=== PATIENT | male | born 1965 ===

== ENCOUNTER 2018-08-15 06:04 | Inpatient (IN) | payer MEDICARE ==
[2018-08-15 06:04] VITALS: BMI 33.5
--- NOTE | 2018-08-15 06:49 | ED PDOC ---
Upper Extremity Pain/Injury Time Seen by Provider: 08/15/18 06:09 Chief Complaint (Nursing): Upper Extremity Problem/Injury Chief Complaint (Provider): Upper Extremity Problem/Injury History Per: Patient History/Exam Limitations: no limitations Onset/Duration Of Symptoms: Days (x3) Additional Complaint(s): 52 years old male with history of hypertension and diabetes presents to ER for evaluation of left arm pain and chest pain onset 3 days ago. Patient reports he had rotator cuff surgery with Dr. Serrano in [facility]. Patient was recovering but reports he developed chest pain and left shoulder pain 3 days ago. Patient states pain radiating down to entire arm and reports pain in neck where he had incision. He denies injuries or shortness of breath. PMD: Kelton Ayers Past Medical History Reviewed: Historical Data, Nursing Documentation, Vital Signs Vital Signs: Last Vital Signs Temp 98.0 F 08/15/18 06:20 Pulse 77 08/15/18 06:31 Resp 18 08/15/18 06:31 BP 172/113 H 08/15/18 06:31 Pulse Ox 97 08/15/18 06:31 Primary Care Provider: Kelton Ayers - Medical History PMH: Anxiety, Colonic Polyps, Diabetes, Gastritis, HTN, Hypercholesterolemia, Sleep Apnea (no c pap) Denies: Chronic Kidney Disease - Surgical History Surgical History: Appendectomy (RUPTURED. HOSPITALIZED FOR 1 MONTH), Endoscopy - Family History Family History: States: Unknown Family Hx - Social History Current smoker - smoking cessation education provided: Yes Alcohol: Social Drugs: Denies - Immunization History Hx Tetanus Toxoid Vaccination: No Hx Influenza Vaccination: Yes (up to date) Hx Pneumococcal Vaccination: Yes (up to date) - Home Medications Home Medications: Ambulatory Orders Medication Instructions Recorded Aspirin [Aspirin Chewable] 81 mg PO DAILY 06/25/17 Atorvastatin [Lipitor] 20 mg PO DAILY 06/25/17 Brimonidine Tartrate [Alphagan P 1 drop OU BID 06/25/17 0.1 % Ophth] Gabapentin 600 mg PO TID 06/25/17 Glimepiride [amaRYL] 4 mg PO DAILY 06/25/17 Lisinopril/Hydrochlorothiazide 1 tab PO DAILY 06/25/17 [Zestoretic 20-12.5 mg Tablet] MetFORMIN [glucOPHAGE] 1,000 mg PO BID 06/25/17 Omeprazole 40 mg PO DAILY 06/25/17 predniSONE [predniSONE Tab] 5 mg PO DAILY 06/25/17 traMADol [Ultram] 50 mg PO Q8 #20 tab 06/25/17 - Allergies Allergies/Adverse Reactions: Allergies Allergy/AdvReac Type Severity Reaction Status Date / Time No Known Allergies Allergy Verified 06/25/17 08:10 Review of Systems ROS Statement: Except As Marked, All Systems Reviewed And Found Negative Cardiovascular: Positive for: Chest Pain Respiratory: Negative for: Shortness of Breath Musculoskeletal: Positive for: Neck Pain, Arm Pain (Left) Physical Exam - Reviewed Nursing Documentation Reviewed: Yes Vital Signs Reviewed: Yes - Physical Exam Appears: Positive for: Uncomfortable Head Exam: Positive for: ATRAUMATIC, NORMOCEPHALIC Skin: Positive for: Normal Color, Warm, Dry Eye Exam: Positive for: Normal appearance, EOMI, PERRL ENT: Positive for: Normal ENT Inspection Neck: Positive for: Normal, Painless ROM, Supple Cardiovascular/Chest: Positive for: Regular Rate, Rhythm. Negative for: Murmur Respiratory: Positive for: Normal Breath Sounds. Negative for: Respiratory Distress Pulses-Radial (L): 2+ Pulses-Radial (R): 2+ Gastrointestinal/Abdominal: Positive for: Normal Exam, Soft. Negative for: Tenderness Back: Positive for: Normal Inspection. Negative for: L CVA Tenderness, R CVA Tenderness Extremity: Positive for: Swelling (to left upper extremity), Other (Multiple incision sites in healing stages. Soft tissues are hardened under incision sites, espicially at shoulder. No erythema, fluctuance or drainage.). Negative for: Normal ROM (Limitation in ROM of left shoulder secondary to pain and swelling) Neurological/Psych: Positive for: Awake, Alert, Oriented (x3), Other (Neurovascular intact) - ECG O2 Sat by Pulse Oximetry: 97 (RA) Pulse Ox Interpretation: Normal Medical Decision Making Medical Decision Making: Time: 0639 A/P: Shoulder pain after surgery for rotator cuff injury. Differential includes but not limited to hematoma vs abscess vs postoperative healing. --Labs --Chest CTA --CXR --Toradol [address] Patient singed out to Dr. Ha, pending chest CTA, CXR, labs and reevaluation. Scribe Attestation: Documented by Halie Ferris, acting as a scribe for Nelson Pino MD. Provider Scribe Attestation: All medical record entries made by the Scribe were at my direction and personally dictated by me. I have reviewed the chart and agree that the record accurately reflects my personal performance of the history, physical exam, medical decision making, and the department course for this patient. I have also personally directed, reviewed, and agree with the discharge instructions and disposition. Disposition - Clinical Impression Clinical Impression: Shoulder pain - Patient ED Disposition Is Patient to be Admitted: Transfer of Care - Disposition Disposition: Transfer of Care Disposition Time: 07:00 Condition: FAIR Forms: [employer] (Mongolian) Patient Signed Over To: Billy Ha Handoff Comments: pending workup and re-eval
[2018-08-15 07:05] LABS: BASO # 0.1 K/uL (0.0-0.2); BASO % 1.2 % (0.0-2.0); EOS # 0.2 K/uL (0.0-0.7); EOS % 4.1 % (0.0-4.0); HEMOGLOBIN 12.8 g/dL (12.0-18.0); LYMPH # 0.9 K/uL (1.0-4.3); LYMPH % 15.3 % (20.0-40.0); MEAN CELL VOLUME 85.7 fl (80.0-94.0); MEAN CORPUSCULAR HEMOGLOBIN 29.6 pg (27.0-31.0); MEAN CORPUSCULAR HGB CONC 34.5 g/dL (33.0-37.0); MEAN PLATELET VOLUME 9.2 fl (7.2-11.7); MONO # 0.5 K/uL (0.0-0.8); MONO % 9.2 % (0.0-10.0); NEUT # 4.1 K/uL (1.8-7.0); NEUT % 70.2 % (50.0-75.0); NRBC % 0.1 % (0.0-0.0); RBC 4.32 Mil/uL (4.40-5.90); RED CELL DISTRIBUTION WIDTH 12.9 % (11.5-14.5); WHITE BLOOD COUNT 5.9 K/uL (4.8-10.8)
[2018-08-15 07:09] LABS: BLOOD UREA NITROGEN 25 mg/dl (9-20); CALCIUM 9.2 mg/dL (8.4-10.2); GFR NON-AFRICAN AMERICAN > 60
[2018-08-15] MEDS ORDERED: Iodixanol 320 MG/ML 100 ML BOTTLE IV ONE (07:22)
[2018-08-15] MEDS ORDERED: Sodium Chloride 0.9% 50 ML IV ONE (07:22)
[2018-08-15] MEDS ORDERED: Iodixanol 320 mg/ml 50 ml Sol IV ONE (07:23)
--- NOTE | 2018-08-15 07:23 | ED PDOC ---
- Laboratory Results Result Diagrams: 08/15/18 06:45 08/15/18 06:45 Interpretation Of Abn Labs: 25 bun - ECG ECG: Positive for: Interpreted By Me, Viewed By Me ECG Rhythm: Positive for: Normal QRS, Normal ST Segment, Sinus Rhythm O2 Sat by Pulse Oximetry: 97 (RA) Pulse Ox Interpretation: Normal - Radiology X-Ray: Interpreted by Me, Viewed By Me X-Ray Interpretation: No Acute Disease - Other Rad cta X-Ray: Read By Radiologist X-Ray Interpretation: no acute us X-Ray: Read By Radiologist X-Ray Interpretation: no acute - Progress ED Course And Treament: 1020: Pain still present. Will give asa and need admit for further evaluation. Spoke with Dr. Ayers who will admit. Spoke with Dr. Serrano who states she already gave pt. percocet. Will admit for pain control and further evaluaton for possible cardiac etiology as pt. had chest pain. Has risk ractors. 1125: Pain gone with morphine and asa given. Medical Decision Making Medical Decision Makin: Patient endorsed to this provider by Dr. Pino. Patient is here for left shoulder pain and surgery with Dr. Serrano. Pending CT chest, shoulder x-ray, arm ultrasound, and evaluation for DVT. Disposition Counseled Patient/Family Regarding: Studies Performed, Diagnosis - Clinical Impression Clinical Impression: Shoulder pain, Chest pain - POA Present On Arrival: None - Disposition Disposition: Hospitalized as Observation Patient Disposition Time: 07:20 Condition: FAIR Forms: [employer] (Ivorian)
[2018-08-15 07:24] LABS: INR 1.1; PROTHROMBIN TIME 12.6 Seconds (9.8-13.1)
[2018-08-15 07:27] LABS: PARTIAL THROMBOPLASTIN TIME 36.4 Seconds (25.6-37.1)
--- NOTE | 2018-08-15 08:34 | CT ---
Date of service: 08/15/2018 PROCEDURE: CT Chest with contrast (Pulmonary Angiogram) HISTORY: recent surgery, L sided CP, arm pain COMPARISON: None available. TECHNIQUE: Axial computed tomography images were obtained of the chest in the pulmonary arterial phase of enhancement. Coronal and sagittal reformatted images were created and reviewed. Intravenous contrast dose: Visipaque 320, 113 cc Radiation dose: Total exam DLP = 397.87 mGy-cm. This CT exam was performed using one or more of the following dose reduction techniques: Automated exposure control, adjustment of the mA and/or kV according to patient size, and/or use of iterative reconstruction technique. FINDINGS: PULMONARY ARTERIES: Unremarkable. No pulmonary embolism. AORTA: No acute findings. No thoracic aortic aneurysm. No aortic atherosclerotic calcification or mural plaque present. LUNGS: Unremarkable. No nodule, mass or pulmonary consolidation. PLEURAL SPACES: Unremarkable. No effusion or pneumothorax. HEART: Unremarkable. No cardiomegaly. No significant pericardial effusion. LYMPH NODES: No lymphadenopathy. BONES, CHEST WALL: Unremarkable. No fracture or destructive lesion OTHER FINDINGS: Trace reactive changes are identified at the left neck base/left supraclavicular fossa medially with trace gas identified at the lateral margins of the left pectoralis minor muscle and additional reactive changes at the left pectoralis muscle inferolaterally including trace emphysema. This likely corresponds to the patient's complaint of left-sided chest and arm pain, particularly if the pain is at the upper left arm. Further clinical correlation advised. IMPRESSION: Unremarkable CT pulmonary angiogram. No pulmonary embolus. No acute cardiopulmonary disease appreciable. Limited reactive change are identified at the left neck base, supraclavicular fossa, pectoralis major and minor muscles-potentially postoperative. Clinically correlate further. This appears to mass the patient's pain signature. Clinically correlate further.
[2018-08-15] MEDS ORDERED: Morphine 4 MG/ML VIAL ONE ×2 (09:21→11:00)
[2018-08-15] MEDS ORDERED: Sodium Chloride 0.9% 1,000 ML IV STA (09:30)
--- NOTE | 2018-08-15 09:59 | US ---
Date of service: 08/15/2018 PROCEDURE: LEFT UPPER EXTREMITY VENOUS ULTRASOUND HISTORY: r/o DVT COMPARISON: None available. TECHNIQUE: Ultrasound of the left upper extremity major deep veins is been performed including graded compression, augmentation including various duplex Doppler techniques. FINDINGS: Good augmentation, graded compression and normal phasicity of venous blood flow is appreciated at the left internal jugular, subclavian, brachial and axillary veins with the basilic, cephalic, ulnar and radial veins patent. No sonographic evidence to suggest deep venous thrombosis. IMPRESSION: No sonographic evidence to suggest deep venous thrombosis left upper extremity.
--- NOTE | 2018-08-15 14:31 | CARD ---
APPROVED REPORT Date of service: 08/15/2018 EKG Measurement Heart [id number] <Conclusion> Normal sinus rhythm Normal ECG
[2018-08-15] MEDS ORDERED: Naproxen 500 MG TAB PO PRN (14:43)
--- NOTE | 2018-08-15 14:59 | RAD ---
Date of service: 08/15/2018 PROCEDURE: CHEST RADIOGRAPH, 1 VIEW HISTORY: chest/shoulder pain COMPARISON: None available. FINDINGS: LUNGS: Clear. PLEURA: No pneumothorax or pleural fluid seen. CARDIOVASCULAR: No aortic atherosclerotic calcification present. No radiographic findings to suggest acute or significant cardiovascular disease. OSSEOUS STRUCTURES: No significant abnormalities. VISUALIZED UPPER ABDOMEN: Normal. OTHER FINDINGS: None. IMPRESSION: No active disease. Concordant results with the preliminary interpretation rendered by the emergency department physician procedure.
--- NOTE | 2018-08-15 15:00 | RAD ---
Date of service: 08/15/2018 PROCEDURE: Radiographs of the Left Shoulder HISTORY: Left shoulder Pain. No history of recent/ related trauma provided. COMPARISON: No prior. TECHNIQUE: 3 views obtained. FINDINGS: BONES: Normal. No fracture. JOINTS: Normal. Glenohumeral and acromioclavicular joints preserved. No osteoarthritis. SOFT TISSUES: Normal. OTHER FINDINGS: None. IMPRESSION: Normal radiographs of the left shoulder.
--- NOTE | 2018-08-15 15:14 | CP.PCM.HP ---
History of Present Illness - History of Present Illness History of Present Illness: 52 years old male with history of hypertension and diabetes presents to ER for evaluation of left arm pain and chest pain onset 3 days ago he c/o same weakness of the lt hand. Patient had a surgery about a week ago for thoracic outlet syndrome, cubital tunnel syndrome, carpal tunnel syndrome on left with Dr. Serrano in [facility]. Patient was recovering but reports he developed chest pain and left shoulder pain 3 days ago. Patient states pain radiating down to entire arm and reports pain in neck where he had incision. He denies injuries. Present on Admission - Present on Admission Any Indicators Present on Admission: No Review of Systems - Constitutional Constitutional: As Per HPI - EENT Eyes: As Per HPI - Cardiovascular Cardiovascular: As Per HPI - Respiratory Respiratory: As Per HPI - Gastrointestinal Gastrointestinal: As Per HPI - Genitourinary Genitourinary: As Per HPI - Musculoskeletal Musculoskeletal: As Per HPI - Neurological Neurological: As Per HPI - Psychiatric Psychiatric: As Per HPI Past Patient History - Tetanus Immunizations Tetanus Immunization: Unknown - Past Medical History & Family History Past Medical History?: Yes - Past Social History Alcohol: Social Drugs: Denies - CARDIAC Hx Hypercholesterolemia: Yes Hx Hypertension: Yes - PULMONARY Hx Sleep Apnea: Yes (no c pap) - NEUROLOGICAL Hx Neurological Disorder: Yes (NEUROPATHY BOTH LOWER EXTREMITIES) - HEENT Hx HEENT Problems: Yes Hx Glaucoma: Yes - RENAL Hx Chronic Kidney Disease: No - ENDOCRINE/METABOLIC Hx Endocrine Disorders: Yes Hx Diabetes Mellitus Type 2: Yes - HEMATOLOGICAL/ONCOLOGICAL Hx Blood Disorders: Yes Hx Shingles: Yes - INTEGUMENTARY Hx Dermatological Problems: No - MUSCULOSKELETAL/RHEUMATOLOGICAL Hx Musculoskeletal Disorders: Yes Hx Degenerative Joint Disease: Yes Hx Osteoarthritis: Yes Other/Comment: LEFT SHOULDER REPAIR /TORN ROTATOR CUFF. Thoracic Outlet Syndrome, left. Carpal Tunnel, left - GASTROINTESTINAL Hx Gastritis: Yes - GENITOURINARY/GYNECOLOGICAL Hx Genitourinary Disorders: No - PSYCHIATRIC Hx Anxiety: Yes - SURGICAL HISTORY Hx Appendectomy: Yes (RUPTURED. HOSPITALIZED FOR 1 MONTH) - ANESTHESIA Hx Anesthesia: Yes Hx Anesthesia Reactions: No Hx Malignant Hyperthermia: No Meds Allergies/Adverse Reactions: Allergies Allergy/AdvReac Type Severity Reaction Status Date / Time No Known Allergies Allergy Verified 06/25/17 08:10 Physical Exam - Constitutional Appears: In Acute Distress - Head Exam Head Exam: ATRAUMATIC, NORMAL INSPECTION, NORMOCEPHALIC - Eye Exam Eye Exam: Normal appearance - ENT Exam ENT Exam: Mucous Membranes Moist - Respiratory Exam Respiratory Exam: Clear to Auscultation Bilateral - Cardiovascular Exam Cardiovascular Exam: REGULAR RHYTHM, +S1, +S2 - GI/Abdominal Exam GI & Abdominal Exam: Normal Bowel Sounds - Extremities Exam Extremities exam: Positive for: normal inspection - Neurological Exam Neurological exam: Alert, CN II-XII Intact, Oriented x3 Additional comments: 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 in relation to the severe pain - Skin Skin Exam: Normal Color Results - Vital Signs Recent Vital Signs: Last Vital Signs Temp 98.0 F 08/15/18 06:20 Pulse 74 08/15/18 14:03 Resp 10 L 08/15/18 14:03 BP 157/103 H 08/15/18 14:03 Pulse Ox 97 08/15/18 14:03 - Labs Result Diagrams: 08/15/18 06:45 08/15/18 06:45 Labs: Laboratory Results - last 24 hr 08/15/18 08/15/18 08/15/18 06:45 06:45 06:45 WBC 5.9 RBC 4.32 L Hgb 12.8 Hct 37.0 MCV 85.7 MCH 29.6 MCHC 34.5 RDW 12.9 Plt Count 221 MPV 9.2 Neut % (Auto) 70.2 Lymph % (Auto) 15.3 L [place] % (Auto) 9.2 Eos % (Auto) 4.1 H Baso % (Auto) 1.2 Neut # (Auto) 4.1 Lymph # (Auto) 0.9 L [place] # (Auto) 0.5 Eos # (Auto) 0.2 Baso # (Auto) 0.1 PT 12.6 INR 1.1 APTT 36.4 Sodium 135 Potassium 4.3 Chloride 103 Carbon Dioxide 24 Anion Gap 12 BUN 25 H Creatinine 0.9 Est GFR ( Amer) > 60 Est GFR (Non-Af Amer) > 60 Random Glucose 135 H Calcium 9.2 Troponin I 0.0160 Assessment & Plan (1) Chest pain Status: Acute (2) Shoulder pain Status: Acute (3) Diabetes Status: Acute (4) HTN (hypertension) Status: Chronic - Assessment and Plan (Free Text) Plan: will follow the consultations
--- NOTE | 2018-08-15 15:45 | CP.PCM.CON ---
History of Present Illness - History of Present Illness History of Present Illness: 52 yo man s/p brachial plexus exploration/repair last week at [facility] is admitted for pain and referred for pain management. Patient was seen at the surgeon's office on Saturday for the same pain and was discharged with tad krishnamurthy, which didn't work as an outpatient. Patient developed the pain after left shoulder surgery more than 2 years ago. The current pain is the same as before. He does have new onset chest pain, which wasn't present before the surgery. Patient does have severe diabetic neuropathy as well, mostly in the lower legs. He also admits to cervical disc diseases. He is on Neurontin 600mg, and had be en on LYrica and Cymbalta before but couldn't tolerate them. Tramdol is not helping with his pain. Past Patient History - Tetanus Immunizations Tetanus Immunization: Unknown - Past Medical History & Family History Past Medical History?: Yes - Past Social History Alcohol: Social Drugs: Denies - CARDIAC Hx Hypercholesterolemia: Yes Hx Hypertension: Yes - PULMONARY Hx Sleep Apnea: Yes (no c pap) - NEUROLOGICAL Hx Neurological Disorder: Yes (NEUROPATHY BOTH LOWER EXTREMITIES) - HEENT Hx HEENT Problems: Yes Hx Glaucoma: Yes - RENAL Hx Chronic Kidney Disease: No - ENDOCRINE/METABOLIC Hx Endocrine Disorders: Yes Hx Diabetes Mellitus Type 2: Yes - HEMATOLOGICAL/ONCOLOGICAL Hx Blood Disorders: Yes Hx Shingles: Yes - INTEGUMENTARY Hx Dermatological Problems: No - MUSCULOSKELETAL/RHEUMATOLOGICAL Hx Musculoskeletal Disorders: Yes Hx Degenerative Joint Disease: Yes Hx Osteoarthritis: Yes Other/Comment: LEFT SHOULDER REPAIR /TORN ROTATOR CUFF. Thoracic Outlet Syndrome, left. Carpal Tunnel, left - GASTROINTESTINAL Hx Gastritis: Yes - GENITOURINARY/GYNECOLOGICAL Hx Genitourinary Disorders: No - PSYCHIATRIC Hx Anxiety: Yes - SURGICAL HISTORY Hx Appendectomy: Yes (RUPTURED. HOSPITALIZED FOR 1 MONTH) - ANESTHESIA Hx Anesthesia: Yes Hx Anesthesia Reactions: No Hx Malignant Hyperthermia: No Meds Allergies/Adverse Reactions: Allergies Allergy/AdvReac Type Severity Reaction Status Date / Time No Known Allergies Allergy Verified 06/25/17 08:10 - Medications Medications: Current Medications Aspirin (Ecotrin) 81 mg PO DAILY [facility] Atorvastatin Calcium (Lipitor) 20 mg PO DAILY [facility] Enoxaparin Sodium (Lovenox) 40 mg SC DAILY [facility]; Protocol Ergocalciferol (Drisdol 50,000 Intl Units Cap) 1 cap PO MO [facility] Gabapentin (Neurontin) 600 mg PO Q8 [facility] Glipizide (Glucotrol Xl) 10 mg PO DAILY [facility] Home Med (Brimonidine Tartrate [Alphagan P 0.1 % Ophth]) 1 drop OU BID [facility] Insulin Detemir (Levemir) 64 units SC HS [facility] Insulin Human Regular (Humulin R) 0 units SC ACHS [facility]; Protocol Losartan Potassium (Cozaar) 25 mg PO DAILY [facility] Metformin HCl (Glucophage) 1,000 mg PO BID [facility] Naproxen (Naproxen) 500 mg PO Q12 PRN PRN Reason: Pain, moderate (4-7) Pantoprazole Sodium (Protonix Ec Tab) 40 mg PO DAILY [facility] Tramadol HCl (Ultram) 50 mg PO Q12 PRN PRN Reason: Pain, severe (8-10) Last Admin: 08/15/18 14:59 Dose: 50 mg Physical Exam - Neck Exam Additional comments: surgical scar in left neck. TTP diffusely. - Extremities Exam Additional comments: Allodynia over left arm diffusely. Temperature and color changes in the fingers on left hand. Results - Vital Signs Recent Vital Signs: Last Vital Signs Temp 98.0 F 08/15/18 06:20 Pulse 74 08/15/18 14:03 Resp 10 L 08/15/18 14:03 BP 157/103 H 08/15/18 14:03 Pulse Ox 97 08/15/18 14:03 - Labs Result Diagrams: 08/15/18 06:45 08/15/18 06:45 Labs: Laboratory Results - last 24 hr 08/15/18 08/15/18 08/15/18 06:45 06:45 06:45 WBC 5.9 RBC 4.32 L Hgb 12.8 Hct 37.0 MCV 85.7 MCH 29.6 MCHC 34.5 RDW 12.9 Plt Count 221 MPV 9.2 Neut % (Auto) 70.2 Lymph % (Auto) 15.3 L [place] % (Auto) 9.2 Eos % (Auto) 4.1 H Baso % (Auto) 1.2 Neut # (Auto) 4.1 Lymph # (Auto) 0.9 L [place] # (Auto) 0.5 Eos # (Auto) 0.2 Baso # (Auto) 0.1 PT 12.6 INR 1.1 APTT 36.4 Sodium 135 Potassium 4.3 Chloride 103 Carbon Dioxide 24 Anion Gap 12 BUN 25 H Creatinine 0.9 Est GFR ( Amer) > 60 Est GFR (Non-Af Amer) > 60 Random Glucose 135 H Calcium 9.2 Troponin I 0.0160 Assessment & Plan - Assessment and Plan (Free Text) Assessment: 52 yo man w/ likely brachial plexus pathology s/p recent surgery. Current pain could be normal post-op pain vs. nerve irritation vs. progressing CRPS. He also has chest pain that needs to be treated independently. Tramadol won't be enough to address the post-op pain or neuropathic pain. - consult plastic surgery to follow up - r/o ACS per protocol, cardio consult as necessary - start Dilaudid 1mg IV q3h PRN, consider Methadone - increase Neurontin to 800mg q8h - trial of Doxepin 25mg qhs - retrieve cervical MRI if available
[2018-08-15] MEDS ORDERED: Insulin Regular 100 units/ml ONE (17:25)
[2018-08-15] MEDS: Insulin Regular 100 units/ml SC SCH ×2 (17:44→22:44)
--- NOTE | 2018-08-15 18:50 | MRI ---
Date of service: 08/15/2018 PROCEDURE: MRI BRAIN WITHOUT CONTRAST HISTORY: left arm weakness; s/p surgery COMPARISON: None available. TECHNIQUE: Multiplanar, multisequence MR images of the brain were obtained without intravenous contrast enhancement. FINDINGS: HEMORRHAGE: None DWI: No evidence of an acute or early subacute infarction. BRAIN PARENCHYMA: No mass effect or edema. No atrophy or chronic microvascular ischemic changes. VENTRICLES: Unremarkable. No hydrocephalus. CRANIUM: Unremarkable. ORBITS: Grossly unremarkable. PARANASAL SINUSES/MASTOIDS: Clear VASCULAR SYSTEM: Skull base flow voids intact. OTHER FINDINGS: None. IMPRESSION: No evidence of acute infarction or acute intracranial hemorrhage mass effect or midline shift.
[2018-08-15] MEDS: HYDROmorphone 0.5 mg/0.5 ml ISec IVP PRN (19:06)
--- NOTE | 2018-08-15 22:34 | CP.PCM.CON ---
History of Present Illness - History of Present Illness History of Present Illness: Plastic surgery consult note for Dr. Serrano-Svetlana Malcolm, PGY-2 Pt seen/examined at bedside 52M w/PSH sig for recent thoracic outlet release, cubital tunnel release, carpal tunnel release and pec minor release of the Left upper extremity consulted for post operative pain. Pt reports that he has seen Dr. Serrano in the office for follow up, however does not feel that the 3 Tramadol pills and few Naprosyn pills that he took sufficiently controlled his pain. Pt reports left sided chest pain x 3 days, which prompted him to report to the ED for evaluation. Pt states that the left upper extremity pain is more severe than before surgery. Reports some SOB with pain. No changes in bowel or bladder habits, ambulating, voiding, no changes in appetite. Pt reports that he has not been attending Physical therapy as instructed due to co pay. PMH: HTN, carpal tunnel syndrome, uncontrolled DM, ventral hernia, obesity, severe peripheral neuropathy PSH: Left rotator cuff sx, appendectomy, Right inguinal hernia repair All: NKDA SH: Admits to drinking beer, a 6 pack weekly; smokes tobacco when he drinks beer, denies illicit drug use FH: Non contributory PMD: Dr. Ayers Review of Systems - Review of Systems All systems: reviewed and no additional remarkable complaints except - Constitutional Constitutional: absent: Chills, Fever - Cardiovascular Cardiovascular: Chest Pain - Gastrointestinal Gastrointestinal: absent: Abdominal Pain, Constipation, Diarrhea, Nausea, Vomiting - Genitourinary Genitourinary: absent: Difficulty Urinating - Integumentary Integumentary: absent: New Lesions, Non-Healing Lesions - Neurological Neurological: absent: Weakness - Psychiatric Psychiatric: absent: Change in Appetite Past Patient History - Tetanus Immunizations Tetanus Immunization: Unknown - Past Medical History & Family History Past Medical History?: Yes - Past Social History Smoking Status: Never Smoked - CARDIAC Hx Cardiac Disorders: Yes Hx Hypercholesterolemia: Yes Hx Hypertension: Yes - PULMONARY Hx Respiratory Disorders: Yes Hx Sleep Apnea: Yes (no c pap) - NEUROLOGICAL Hx Neurological Disorder: Yes (NEUROPATHY BOTH LOWER EXTREMITIES) - HEENT Hx HEENT Problems: Yes - RENAL Hx Chronic Kidney Disease: No - ENDOCRINE/METABOLIC Hx Endocrine Disorders: Yes - HEMATOLOGICAL/ONCOLOGICAL Hx Blood Disorders: Yes - INTEGUMENTARY Hx Dermatological Problems: No - MUSCULOSKELETAL/RHEUMATOLOGICAL Hx Musculoskeletal Disorders: Yes - GASTROINTESTINAL Hx Gastrointestinal Disorders: Yes Hx Gastritis: Yes Other/Comment: colonic polyps - GENITOURINARY/GYNECOLOGICAL Hx Genitourinary Disorders: No - PSYCHIATRIC Hx Psychophysiologic Disorder: Yes Hx Anxiety: Yes - SURGICAL HISTORY Hx Surgeries: Yes Hx Appendectomy: Yes (RUPTURED. HOSPITALIZED FOR 1 MONTH) - ANESTHESIA Hx Anesthesia: Yes Hx Anesthesia Reactions: No Hx Malignant Hyperthermia: No Meds Allergies/Adverse Reactions: Allergies Allergy/AdvReac Type Severity Reaction Status Date / Time No Known Allergies Allergy Verified 06/25/17 08:10 - Medications Medications: Current Medications Aspirin (Ecotrin) 81 mg PO DAILY [facility] Atorvastatin Calcium (Lipitor) 20 mg PO HS [facility] Doxepin HCl (Sinequan) 25 mg PO HS [facility] Enoxaparin Sodium (Lovenox) 40 mg SC DAILY [facility]; Protocol Ergocalciferol (Drisdol 50,000 Intl Units Cap) 1 cap PO MO [facility] Gabapentin (Neurontin) 800 mg PO TID [facility] Last Admin: 08/15/18 17:31 Dose: 800 mg Glipizide (Glucotrol Xl) 10 mg PO DAILY [facility] Home Med (Brimonidine Tartrate [Alphagan P 0.1 % Ophth]) 1 drop OU BID [facility] Hydromorphone HCl (Dilaudid) 1 mg IVP Q3 PRN PRN Reason: Pain, severe (8-10) Last Admin: 08/15/18 19:06 Dose: 1 mg Insulin Detemir (Levemir) 64 units SC HS [facility] Insulin Human Regular (Humulin R) 0 units SC ACHS [facility]; Protocol Last Admin: 08/15/18 17:44 Dose: Not Given Losartan Potassium (Cozaar) 25 mg PO DAILY [facility] Last Admin: 08/15/18 17:29 Dose: 25 mg Metformin HCl (Glucophage) 1,000 mg PO BID [facility] Last Admin: 08/15/18 17:30 Dose: 1,000 mg Pantoprazole Sodium (Protonix Ec Tab) 40 mg PO DAILY [facility] Physical Exam - Constitutional Appears: Non-toxic, No Acute Distress - Head Exam Head Exam: ATRAUMATIC, NORMAL INSPECTION, NORMOCEPHALIC - Eye Exam Eye Exam: EOMI, Normal appearance - ENT Exam ENT Exam: Mucous Membranes Moist, Normal Exam - Neck Exam Additional comments: surgical site at base of left neck with surgical glue in place, induration, no f luctuance noted, tender to palpation, some ecchymoses, no erythema. - Respiratory Exam Respiratory Exam: Chest Wall Tenderness (left chest wall with linear incision, well approximated, no erythema/fluctuance/drainage, indurated and tender to palpation), NORMAL BREATHING PATTERN - Cardiovascular Exam Cardiovascular Exam: REGULAR RHYTHM - GI/Abdominal Exam GI & Abdominal Exam: Soft. absent: Distended (morbidly obese), Tenderness - Extremities Exam Extremities exam: Positive for: normal inspection - Neurological Exam Neurological exam: Alert, CN II-XII Intact, Oriented x3 - Psychiatric Exam Psychiatric exam: Normal Affect, Normal Mood - Skin Skin Exam: Dry, Normal Color, Warm Results - Vital Signs Recent Vital Signs: Last Vital Signs Temp 98.0 F 08/15/18 06:20 Pulse 72 08/15/18 21:19 Resp 17 08/15/18 21:19 BP 159/96 H 08/15/18 21:19 Pulse Ox 95 08/15/18 21:02 - Labs Result Diagrams: 08/15/18 06:45 08/15/18 06:45 Labs: Laboratory Results - last 24 hr 08/15/18 08/15/18 08/15/18 06:45 06:45 06:45 WBC 5.9 RBC 4.32 L Hgb 12.8 Hct 37.0 MCV 85.7 MCH 29.6 MCHC 34.5 RDW 12.9 Plt Count 221 MPV 9.2 Neut % (Auto) 70.2 Lymph % (Auto) 15.3 L [place] % (Auto) 9.2 Eos % (Auto) 4.1 H Baso % (Auto) 1.2 Neut # (Auto) 4.1 Lymph # (Auto) 0.9 L [place] # (Auto) 0.5 Eos # (Auto) 0.2 Baso # (Auto) 0.1 PT 12.6 INR 1.1 APTT 36.4 Sodium 135 Potassium 4.3 Chloride 103 Carbon Dioxide 24 Anion Gap 12 BUN 25 H Creatinine 0.9 Est GFR ( Amer) > 60 Est GFR (Non-Af Amer) > 60 POC Glucose (mg/dL) Random Glucose 135 H Hemoglobin A1c Calcium 9.2 Troponin I 0.0160 08/15/18 08/15/18 08/15/18 15:53 17:12 17:28 WBC RBC Hgb Hct MCV MCH MCHC RDW Plt Count MPV Neut % (Auto) Lymph % (Auto) [place] % (Auto) Eos % (Auto) Baso % (Auto) Neut # (Auto) Lymph # (Auto) [place] # (Auto) Eos # (Auto) Baso # (Auto) PT INR APTT Sodium Potassium Chloride Carbon Dioxide Anion Gap BUN Creatinine Est GFR ( Amer) Est GFR (Non-Af Amer) POC Glucose (mg/dL) 150 H 124 H Random Glucose Hemoglobin A1c 9.1 H D Calcium Troponin I 08/15/18 21:45 WBC RBC Hgb Hct MCV MCH MCHC RDW Plt Count MPV Neut % (Auto) Lymph % (Auto) [place] % (Auto) Eos % (Auto) Baso % (Auto) Neut # (Auto) Lymph # (Auto) [place] # (Auto) Eos # (Auto) Baso # (Auto) PT INR APTT Sodium Potassium Chloride Carbon Dioxide Anion Gap BUN Creatinine Est GFR ( Amer) Est GFR (Non-Af Amer) POC Glucose (mg/dL) 278 H Random Glucose Hemoglobin A1c Calcium Troponin I Assessment & Plan - Assessment and Plan (Free Text) Assessment: 52M POD#11 s/p thoracic outlet release, cubital tunnel release, carpal tunnel and pec minor release on the left with post operative pain Plan: No surgical intervention at this time Warm compresses to left neck/shoulder Needs PT for tendon and nerve gliding exercises Needs to do ROM exercises for left upper arm Pain control as per primary and pain management recs Further care as per primary team DW Dr. Maggie Malcolm, PGY-2 - Date & Time Date: 08/15/18 Time: 23:28
[2018-08-15] MEDS: Insulin Detemir 100 Units/ml Inj SC SCH (22:44)
[2018-08-16] MEDS: HYDROmorphone 0.5 mg/0.5 ml ISec IVP PRN ×2 (00:57→06:49)
[2018-08-16] MEDS: Insulin Regular 100 units/ml SC SCH ×4 (06:47→22:29)
[2018-08-16] MEDS: GlipiZIDE 10 mg SR Tab PO SCH (08:57)
[2018-08-16] MEDS: Enoxaparin 40 mg Syringe SC SCH (08:57)
[2018-08-16] MEDS: Pantoprazole 40 mg EC Tab PO SCH (08:58)
[2018-08-16 12:45] LABS: BASO # 0.1 K/uL (0.0-0.2); EOS # 0.3 K/uL (0.0-0.7); EOS % 4.4 % (0.0-4.0); HEMOGLOBIN 13.9 g/dL (12.0-18.0); LYMPH # 1.2 K/uL (1.0-4.3); LYMPH % 19.5 % (20.0-40.0); MEAN CORPUSCULAR HGB CONC 34.1 g/dL (33.0-37.0); MEAN PLATELET VOLUME 8.7 fl (7.2-11.7); MONO # 0.5 K/uL (0.0-0.8); MONO % 8.9 % (0.0-10.0); NEUT # 4.1 K/uL (1.8-7.0); NEUT % 66.2 % (50.0-75.0); NRBC % 0.1 % (0.0-0.0); RBC 4.62 Mil/uL (4.40-5.90); RED CELL DISTRIBUTION WIDTH 12.9 % (11.5-14.5); WHITE BLOOD COUNT 6.1 K/uL (4.8-10.8)
[2018-08-16 12:57] LABS: ALB/GLOB RATIO 1.3 (1.0-2.1); ALT/SGPT 39 U/L (21-72); AST/SGOT 31 U/L (17-59); BLOOD UREA NITROGEN 17 mg/dl (9-20); CALCIUM 9.2 mg/dL (8.4-10.2); GFR NON-AFRICAN AMERICAN > 60
[2018-08-16] MEDS: Brimonidine 0.2% 50 DROP/5 ML BOTTLE OU SCH ×2 (13:20→16:26)
[2018-08-16] MEDS ORDERED: Iohexol 300 100 ML IJ ONE (16:04)
[2018-08-16] MEDS ORDERED: Sodium Chloride 0.9% 50 ML IV ONE (16:04)
--- NOTE | 2018-08-16 17:58 | CP.PCM.PN ---
Subjective - Date & Time of Evaluation Date of Evaluation: 08/16/18 Time of Evaluation: 17:59 - Subjective Subjective: Patient more comfortable improving well Objective - Vital Signs/Intake and Output Vital Signs (last 24 hours): Temp Pulse Resp BP Pulse Ox 98.3 F 65 18 154/93 H 95 08/16/18 16:24 08/16/18 16:24 08/16/18 16:24 08/16/18 16:24 08/16/18 16:24 - Medications Medications: Current Medications Aspirin (Ecotrin) 81 mg PO DAILY [facility] Last Admin: 08/16/18 08:56 Dose: 81 mg Atorvastatin Calcium (Lipitor) 20 mg PO [facility] Last Admin: 08/15/18 22:43 Dose: 20 mg Brimonidine Tartrate (Alphagan 0.2% Opht) 1 drop OU BID [facility] Last Admin: 08/16/18 16:26 Dose: 1 drop Doxepin HCl (Sinequan) 25 mg PO [facility] Last Admin: 08/15/18 22:43 Dose: 25 mg Enoxaparin Sodium (Lovenox) 40 mg SC DAILY [facility]; Protocol Last Admin: 08/16/18 08:57 Dose: 40 mg Ergocalciferol (Drisdol 50,000 Intl Units Cap) 1 cap PO MO [facility] Gabapentin (Neurontin) 800 mg PO TID [facility] Last Admin: 08/16/18 16:27 Dose: 800 mg Glipizide (Glucotrol Xl) 10 mg PO DAILY [facility] Last Admin: 08/16/18 08:57 Dose: 10 mg Hydromorphone HCl (Dilaudid) 1 mg IVP Q3 PRN PRN Reason: Pain, severe (8-10) Last Admin: 08/16/18 16:20 Dose: 1 mg Insulin Detemir (Levemir) 64 units SC [facility] Last Admin: 08/15/18 22:44 Dose: 64 units Insulin Human Regular (Humulin R) 0 units SC [facility]; Protocol Last Admin: 08/16/18 16:31 Dose: 2 units Losartan Potassium (Cozaar) 25 mg PO DAILY [facility] Last Admin: 08/16/18 08:56 Dose: 25 mg Metformin HCl (Glucophage) 1,000 mg PO BID [facility] Last Admin: 08/16/18 16:26 Dose: 1,000 mg Pantoprazole Sodium (Protonix Ec Tab) 40 mg PO DAILY [facility] Last Admin: 08/16/18 08:58 Dose: 40 mg - Labs Labs: 08/16/18 12:36 08/16/18 12:36 PT 12.6 Seconds (9.8-13.1) 08/15/18 06:45 INR 1.1 08/15/18 06:45 APTT 36.4 Seconds (25.6-37.1) 08/15/18 06:45 - Constitutional Appears: Non-toxic - Head Exam Head Exam: ATRAUMATIC, NORMAL INSPECTION, NORMOCEPHALIC - Eye Exam Eye Exam: Normal appearance - ENT Exam ENT Exam: Mucous Membranes Moist - Neck Exam Neck Exam: Full ROM, Tenderness - Respiratory Exam Respiratory Exam: Clear to Ausculation Bilateral - Cardiovascular Exam Cardiovascular Exam: REGULAR RHYTHM, +S1, +S2 - Extremities Exam Extremities Exam: Full ROM - Neurological Exam Neurological Exam: Alert, Awake, CN II-XII Intact, Normal Gait, Oriented x3 - Psychiatric Exam Psychiatric exam: Normal Mood Assessment and Plan (1) Chest pain Status: Acute (2) Shoulder pain Status: Acute (3) Diabetes Status: Acute (4) HTN (hypertension) Status: Chronic - Assessment and Plan (Free Text) Plan: Consults pending CT scan pending
--- NOTE | 2018-08-16 19:35 | CP.PCM.PN ---
Subjective - Date & Time of Evaluation Date of Evaluation: 08/16/18 Time of Evaluation: 19:30 - Subjective Subjective: Patient is feeling better with the current regimen, and denies side effects from them. He was seen by surgery. CT of the neck was done but result pending. He is evidently feeling better compared to yesterday, as he was gesticulating with his left arm freely, compared to before when it was stiff and swollen. Objective - Vital Signs/Intake and Output Vital Signs (last 24 hours): Temp Pulse Resp BP Pulse Ox 98.9 F 84 18 143/87 98 08/16/18 18:56 08/16/18 18:56 08/16/18 18:56 08/16/18 18:56 08/16/18 18:56 - Medications Medications: Current Medications Aspirin (Ecotrin) 81 mg PO DAILY [facility] Last Admin: 08/16/18 08:56 Dose: 81 mg Atorvastatin Calcium (Lipitor) 20 mg PO HS [facility] Last Admin: 08/15/18 22:43 Dose: 20 mg Brimonidine Tartrate (Alphagan 0.2% Opht) 1 drop OU BID [facility] Last Admin: 08/16/18 16:26 Dose: 1 drop Doxepin HCl (Sinequan) 25 mg PO HS [facility] Last Admin: 08/15/18 22:43 Dose: 25 mg Enoxaparin Sodium (Lovenox) 40 mg SC DAILY [facility]; Protocol Last Admin: 08/16/18 08:57 Dose: 40 mg Ergocalciferol (Drisdol 50,000 Intl Units Cap) 1 cap PO MO [facility] Gabapentin (Neurontin) 800 mg PO TID [facility] Last Admin: 08/16/18 16:27 Dose: 800 mg Glipizide (Glucotrol Xl) 10 mg PO DAILY [facility] Last Admin: 08/16/18 08:57 Dose: 10 mg Hydromorphone HCl (Dilaudid) 1 mg IVP Q3 PRN PRN Reason: Pain, severe (8-10) Last Admin: 08/16/18 16:20 Dose: 1 mg Insulin Detemir (Levemir) 64 units SC [facility] Last Admin: 08/15/18 22:44 Dose: 64 units Insulin Human Regular (Humulin R) 0 units SC [facility]; Protocol Last Admin: 08/16/18 16:31 Dose: 2 units Losartan Potassium (Cozaar) 25 mg PO DAILY [facility] Last Admin: 08/16/18 08:56 Dose: 25 mg Metformin HCl (Glucophage) 1,000 mg PO BID [facility] Last Admin: 08/16/18 16:26 Dose: 1,000 mg Pantoprazole Sodium (Protonix Ec Tab) 40 mg PO DAILY [facility] Last Admin: 08/16/18 08:58 Dose: 40 mg - Labs Labs: 08/16/18 12:36 08/16/18 12:36 PT 12.6 Seconds (9.8-13.1) 08/15/18 06:45 INR 1.1 08/15/18 06:45 APTT 36.4 Seconds (25.6-37.1) 08/15/18 06:45 - Neck Exam Additional comments: Incision intact, fullness to the surrounding area. Assessment and Plan - Assessment and Plan (Free Text) Assessment: 52 yo man s/p surgery for thoracic outlet syndrome likey has neuropathic pain with ongoing post-op pain. I do not know the patient from before and do not his level of pain tolerance or opioid requirement/seeking, but he probably needs to be on something stronger than Naproxen and Tramadol. He's made good progress with the current regimen however, and this painful period may not need to be prolonged, but neuropathic medications will need to be part of his regimen going forward. - if CT neck is WNL, can d/c Dilaudid IV tomorrow and change to Oxycodone 10mg q4h PRN - continue Neurontin and Doxepin - patient may be discharged with #30 tablets of Oxycodone, Neurontin and Doxepin, with outpatient follow-up with plastics
[2018-08-16] MEDS: Insulin Detemir 100 Units/ml Inj SC SCH (22:29)
[2018-08-17] MEDS: Insulin Regular 100 units/ml SC SCH ×4 (06:55→21:50)
[2018-08-17] MEDS: Brimonidine 0.2% 50 DROP/5 ML BOTTLE OU SCH ×2 (10:01→16:40)
[2018-08-17] MEDS: Enoxaparin 40 mg Syringe SC SCH (10:01)
[2018-08-17] MEDS: Pantoprazole 40 mg EC Tab PO SCH (10:03)
[2018-08-17] MEDS: GlipiZIDE 10 mg SR Tab PO SCH (10:03)
--- NOTE | 2018-08-17 12:44 | CP.PCM.CON ---
History of Present Illness - History of Present Illness History of Present Illness: Neurology consult dictated. MR Crutis had a surgery on left shoulder and arm and has for several weeks, had numbness and tingling radiating from his left elbow to his left thumb and first two forefingers. On exam there is no weakness, but he does indeed have numbness in this distribution. Plan: 1. MRI C spine on an outpatient basis. 2. EMG upper limb outpatient. Thank you Dr. Reece Neurology Past Patient History - Tetanus Immunizations Tetanus Immunization: Unknown - Past Medical History & Family History Past Medical History?: Yes - Past Social History Smoking Status: Never Smoked - CARDIAC Hx Cardiac Disorders: Yes Hx Hypercholesterolemia: Yes Hx Hypertension: Yes - PULMONARY Hx Respiratory Disorders: Yes Hx Sleep Apnea: Yes (no c pap) - NEUROLOGICAL Hx Neurological Disorder: Yes (NEUROPATHY BOTH LOWER EXTREMITIES) - HEENT Hx HEENT Problems: Yes - RENAL Hx Chronic Kidney Disease: No - ENDOCRINE/METABOLIC Hx Endocrine Disorders: Yes - HEMATOLOGICAL/ONCOLOGICAL Hx Blood Disorders: Yes - INTEGUMENTARY Hx Dermatological Problems: No - MUSCULOSKELETAL/RHEUMATOLOGICAL Hx Musculoskeletal Disorders: Yes - GASTROINTESTINAL Hx Gastrointestinal Disorders: Yes Hx Gastritis: Yes Other/Comment: colonic polyps - GENITOURINARY/GYNECOLOGICAL Hx Genitourinary Disorders: No - PSYCHIATRIC Hx Psychophysiologic Disorder: Yes Hx Anxiety: Yes - SURGICAL HISTORY Hx Surgeries: Yes Hx Appendectomy: Yes (RUPTURED. HOSPITALIZED FOR 1 MONTH) - ANESTHESIA Hx Anesthesia: Yes Hx Anesthesia Reactions: No Hx Malignant Hyperthermia: No Meds Home Medications: Home Medication List Medication Instructions Recorded Confirmed Type Doxepin [Sinequan] 25 mg PO HS cap 08/18/18 Rx Gabapentin [Neurontin] 800 mg PO TID cap 08/18/18 Rx MetFORMIN [glucoPHAGE] 1,000 mg PO BID tab 08/18/18 Rx Allergies/Adverse Reactions: Allergies Allergy/AdvReac Type Severity Reaction Status Date / Time No Known Allergies Allergy Verified 06/25/17 08:10 - Medications Medications: Current Medications Aspirin (Ecotrin) 81 mg PO DAILY [facility] Last Admin: 08/17/18 10:03 Dose: 81 mg Atorvastatin Calcium (Lipitor) 20 mg PO HS [facility] Last Admin: 08/16/18 21:36 Dose: 20 mg Brimonidine Tartrate (Alphagan 0.2% Opht) 1 drop OU BID [facility] Last Admin: 08/17/18 10:01 Dose: 1 drop Doxepin HCl (Sinequan) 25 mg PO HS [facility] Last Admin: 08/16/18 21:36 Dose: 25 mg Enoxaparin Sodium (Lovenox) 40 mg SC DAILY [facility]; Protocol Last Admin: 08/17/18 10:01 Dose: 40 mg Ergocalciferol (Drisdol 50,000 Intl Units Cap) 1 cap PO MO [facility] Gabapentin (Neurontin) 800 mg PO TID [facility] Last Admin: 08/17/18 12:31 Dose: 800 mg Glipizide (Glucotrol Xl) 10 mg PO DAILY [facility] Last Admin: 08/17/18 10:03 Dose: 10 mg Hydromorphone HCl (Dilaudid) 1 mg IVP Q3 PRN PRN Reason: Pain, severe (8-10) Last Admin: 08/17/18 12:35 Dose: 1 mg Insulin Detemir (Levemir) 64 units SC HS [facility] Last Admin: 08/16/18 22:29 Dose: 64 units Insulin Human Regular (Humulin R) 0 units SC [facility]; Protocol Last Admin: 08/17/18 12:29 Dose: 4 units Losartan Potassium (Cozaar) 25 mg PO DAILY [facility] Last Admin: 08/17/18 10:02 Dose: 25 mg Metformin HCl (Glucophage) 1,000 mg PO BID [facility] Last Admin: 08/17/18 10:03 Dose: 1,000 mg Pantoprazole Sodium (Protonix Ec Tab) 40 mg PO DAILY [facility] Last Admin: 08/17/18 10:03 Dose: 40 mg Results - Vital Signs Recent Vital Signs: Last Vital Signs Temp 97.5 F L 08/17/18 08:56 Pulse 66 08/17/18 10:02 Resp 20 08/17/18 08:56 BP 155/93 H 08/17/18 10:02 Pulse Ox 98 08/17/18 08:56 - Labs Result Diagrams: 08/16/18 12:36 08/16/18 12:36 Labs: Laboratory Results - last 24 hr 08/16/18 08/16/18 08/16/18 12:36 12:36 15:43 WBC 6.1 RBC 4.62 Hgb 13.9 Hct 40.7 MCV 88.0 D MCH 30.0 MCHC 34.1 RDW 12.9 Plt Count 227 MPV 8.7 Neut % (Auto) 66.2 Lymph % (Auto) 19.5 L [place] % (Auto) 8.9 Eos % (Auto) 4.4 H Baso % (Auto) 1.0 Neut # (Auto) 4.1 Lymph # (Auto) 1.2 [place] # (Auto) 0.5 Eos # (Auto) 0.3 Baso # (Auto) 0.1 Sodium 137 Potassium 4.5 Chloride 102 Carbon Dioxide 27 Anion Gap 13 BUN 17 Creatinine 0.9 Est GFR ( Amer) > 60 Est GFR (Non-Af Amer) > 60 POC Glucose (mg/dL) 164 H Random Glucose 121 H Calcium 9.2 Phosphorus 4.1 Magnesium 1.8 Total Bilirubin 0.4 AST 31 ALT 39 Alkaline Phosphatase 72 Total Protein 7.1 Albumin 4.0 Globulin 3.1 Albumin/Globulin Ratio 1.3 08/16/18 08/17/18 08/17/18 22:16 04:32 10:54 WBC RBC Hgb Hct MCV MCH MCHC RDW Plt Count MPV Neut % (Auto) Lymph % (Auto) [place] % (Auto) Eos % (Auto) Baso % (Auto) Neut # (Auto) Lymph # (Auto) [place] # (Auto) Eos # (Auto) Baso # (Auto) Sodium Potassium Chloride Carbon Dioxide Anion Gap BUN Creatinine Est GFR ( Amer) Est GFR (Non-Af Amer) POC Glucose (mg/dL) 153 H 74 264 H Random Glucose Calcium Phosphorus Magnesium Total Bilirubin AST ALT Alkaline Phosphatase Total Protein Albumin Globulin Albumin/Globulin Ratio
--- NOTE | 2018-08-17 15:38 | CT ---
Date of service: 08/16/2018 PROCEDURE: CT NECK WITH CONTRAST HISTORY: neck swelling COMPARISON: None available. TECHNIQUE: CT of the neck with intravenous contrast. Coronal and sagittal reformats generated. Intravenous contrast dose: Omnipaque 300, 95 cc Radiation dose: Total exam DLP = 311.83 mGy-cm. This CT exam was performed using one or more of the following dose reduction techniques: Automated exposure control, adjustment of the mA and/or kV according to patient size, and/or use of iterative reconstruction technique. FINDINGS: Examination is positive for reactive changes identified at the left supraclavicular fossa overlying the left paraspinal musculature and extending inferiorly to the upper portion of the pectoralis minor muscle region in this patient who recently underwent left upper extremity surgical procedure. This may reflect postoperative change. No related enhancement is identified to suggest an abscess though reactive changes do extend to the dermis at the left neck base immediately cephalad to the supraclavicular fossa laterally. NASOPHARYNX: Unremarkable. SUPRAHYOID NECK: Unremarkable oropharynx, oral cavity, parapharyngeal space and retropharyngeal space. INFRAHYOID NECK: Unremarkable larynx, hypopharynx, and supraglottic space. Vocal cords intact. MASS: None. GLANDS: Parotid and submandibular glands unremarkable. Normal size thyroid gland, without nodule. LYMPH NODES: Normal. No lymphadenopathy. CERVICAL SPINE: No fracture or focal lesion. VASCULAR STRUCTURES: Unremarkable. OTHER FINDINGS: Visualized pulmonary apices unremarkable. IMPRESSION: Limited reactive changes seen at the left neck base laterally extending into the supraclavicular fossa without enhancement presumably reflecting postoperative change. No definite abscess associated.
--- NOTE | 2018-08-17 21:09 | CP.PCM.PN ---
Subjective - Date & Time of Evaluation Date of Evaluation: 08/17/18 Time of Evaluation: 21:10 - Subjective Subjective: Still c/o severe pain 8/9 on iv analgesics. Will follow. If pain better controlled will dc in am. Objective - Vital Signs/Intake and Output Vital Signs (last 24 hours): Temp Pulse Resp BP Pulse Ox 98.2 F 75 16 138/82 97 08/17/18 19:45 08/17/18 19:45 08/17/18 19:45 08/17/18 19:45 08/17/18 19:45 - Medications Medications: Current Medications Aspirin (Ecotrin) 81 mg PO DAILY [facility] Last Admin: 08/17/18 10:03 Dose: 81 mg Atorvastatin Calcium (Lipitor) 20 mg PO HS [facility] Last Admin: 08/16/18 21:36 Dose: 20 mg Brimonidine Tartrate (Alphagan 0.2% Opht) 1 drop OU BID [facility] Last Admin: 08/17/18 16:40 Dose: 1 drop Doxepin HCl (Sinequan) 25 mg PO HS [facility] Last Admin: 08/16/18 21:36 Dose: 25 mg Enoxaparin Sodium (Lovenox) 40 mg SC DAILY [facility]; Protocol Last Admin: 08/17/18 10:01 Dose: 40 mg Ergocalciferol (Drisdol 50,000 Intl Units Cap) 1 cap PO MO [facility] Gabapentin (Neurontin) 800 mg PO TID [facility] Last Admin: 08/17/18 16:40 Dose: 800 mg Glipizide (Glucotrol Xl) 10 mg PO DAILY [facility] Last Admin: 08/17/18 10:03 Dose: 10 mg Hydromorphone HCl (Dilaudid) 1 mg IVP Q3 PRN PRN Reason: Pain, severe (8-10) Last Admin: 08/17/18 20:43 Dose: 1 mg Insulin Detemir (Levemir) 64 units SC HS [facility] Last Admin: 08/16/18 22:29 Dose: 64 units Insulin Human Regular (Humulin R) 0 units SC [facility]; Protocol Last Admin: 08/17/18 16:41 Dose: 2 units Losartan Potassium (Cozaar) 25 mg PO DAILY [facility] Last Admin: 08/17/18 10:02 Dose: 25 mg Metformin HCl (Glucophage) 1,000 mg PO BID [facility] Last Admin: 08/17/18 16:39 Dose: 1,000 mg Pantoprazole Sodium (Protonix Ec Tab) 40 mg PO DAILY [facility] Last Admin: 08/17/18 10:03 Dose: 40 mg - Labs Labs: 08/16/18 12:36 08/16/18 12:36 PT 12.6 Seconds (9.8-13.1) 08/15/18 06:45 INR 1.1 08/15/18 06:45 APTT 36.4 Seconds (25.6-37.1) 08/15/18 06:45 - Constitutional Appears: Non-toxic - Eye Exam Eye Exam: Normal appearance - ENT Exam ENT Exam: Mucous Membranes Moist - Neck Exam Neck Exam: Tenderness - Respiratory Exam Respiratory Exam: Clear to Ausculation Bilateral - Cardiovascular Exam Cardiovascular Exam: REGULAR RHYTHM, +S1, +S2 - GI/Abdominal Exam GI & Abdominal Exam: Normal Bowel Sounds - Extremities Exam Extremities Exam: Full ROM, Normal Capillary Refill, Normal Inspection - Neurological Exam Neurological Exam: Alert, Awake, Oriented x3 - Psychiatric Exam Psychiatric exam: Depressed - Skin Skin Exam: Normal Color Assessment and Plan (1) Chest pain Status: Acute (2) Shoulder pain Status: Acute (3) Diabetes Status: Acute (4) HTN (hypertension) Status: Chronic
[2018-08-17] MEDS: Insulin Detemir 100 Units/ml Inj SC SCH (21:50)
[2018-08-18] MEDS: Insulin Regular 100 units/ml SC SCH ×2 (06:37→12:19)
[2018-08-18 08:29] VITALS: RESP 20
[2018-08-18] MEDS: Pantoprazole 40 mg EC Tab PO SCH (08:29)
[2018-08-18] MEDS: GlipiZIDE 10 mg SR Tab PO SCH (08:29)
[2018-08-18] MEDS: Enoxaparin 40 mg Syringe SC SCH (08:30)
[2018-08-18] MEDS: Brimonidine 0.2% 50 DROP/5 ML BOTTLE OU SCH (08:31)
[2018-08-18 12:45] VITALS: BP 148/90; PULSE 83; TEMP 97.7; O2SAT 96
--- NOTE | 2018-08-18 13:02 | CP.PCM.DIS ---
Provider - Provider Date of Admission: 08/15/18 11:15 Attending physician: Kelton Ayers MD Consults: 08/15/18 14:46 Anesthesiology Consult Stat Comment: Consulting Provider: Chris Us Consulting Physician: Chris Us Reason for Consult: pain managment 08/15/18 14:48 Neurology Consult Stat Comment: Consulting Provider: Raad Reece Consulting Physician: Raad Reece Reason for Consult: weakness in lt hand s/p surgery 08/15/18 14:58 Plastic Surgery Consult Stat Comment: Consulting Provider: Augusta Serrano V Consulting Physician: Augusta Serrano V Reason for Consult: post op pain 08/15/18 22:32 Social Work Referral Routine Comment: lives alone Physician Instructions: Reason For Exam: As per Admission Assessment Time Spent in preparation of Discharge (in minutes): 30 Diagnosis - Discharge Diagnosis (1) Chest pain Status: Acute (2) Shoulder pain Status: Acute (3) Diabetes Status: Acute (4) HTN (hypertension) Status: Chronic Hospital Course - Lab Results Lab Results: Most Recent Lab Values WBC 6.1 K/uL (4.8-10.8) 08/16/18 12:36 RBC 4.62 Mil/uL (4.40-5.90) 08/16/18 12:36 Hgb 13.9 g/dL (12.0-18.0) 08/16/18 12:36 Hct 40.7 % (35.0-51.0) 08/16/18 12:36 MCV 88.0 fl (80.0-94.0) D 08/16/18 12:36 MCH 30.0 pg (27.0-31.0) 08/16/18 12:36 MCHC 34.1 g/dL (33.0-37.0) 08/16/18 12:36 RDW 12.9 % (11.5-14.5) 08/16/18 12:36 Plt Count 227 K/uL (130-400) 08/16/18 12:36 MPV 8.7 fl (7.2-11.7) 08/16/18 12:36 Neut % (Auto) 66.2 % (50.0-75.0) 08/16/18 12:36 Lymph % (Auto) 19.5 % (20.0-40.0) L 08/16/18 12:36 [place] % (Auto) 8.9 % (0.0-10.0) 08/16/18 12:36 Eos % (Auto) 4.4 % (0.0-4.0) H 08/16/18 12:36 Baso % (Auto) 1.0 % (0.0-2.0) 08/16/18 12:36 Neut # (Auto) 4.1 K/uL (1.8-7.0) 08/16/18 12:36 Lymph # (Auto) 1.2 K/uL (1.0-4.3) 08/16/18 12:36 [place] # (Auto) 0.5 K/uL (0.0-0.8) 08/16/18 12:36 Eos # (Auto) 0.3 K/uL (0.0-0.7) 08/16/18 12:36 Baso # (Auto) 0.1 K/uL (0.0-0.2) 08/16/18 12:36 PT 12.6 Seconds (9.8-13.1) 08/15/18 06:45 INR 1.1 08/15/18 06:45 APTT 36.4 Seconds (25.6-37.1) 08/15/18 06:45 Sodium 137 mmol/l (132-148) 08/16/18 12:36 Potassium 4.5 MMOL/L (3.6-5.0) 08/16/18 12:36 Chloride 102 mmol/L (98-107) 08/16/18 12:36 Carbon Dioxide 27 mmol/L (22-30) 08/16/18 12:36 Anion Gap 13 (10-20) 08/16/18 12:36 BUN 17 mg/dl (9-20) 08/16/18 12:36 Creatinine 0.9 mg/dl (0.8-1.5) 08/16/18 12:36 Est GFR ( Amer) > 60 08/16/18 12:36 Est GFR (Non-Af Amer) > 60 08/16/18 12:36 POC Glucose (mg/dL) 200 mg/dL (65-110) H 08/18/18 11:13 Random Glucose 121 mg/dL (75-110) H 08/16/18 12:36 Hemoglobin A1c 9.1 % (4.2-6.5) H D 08/15/18 17:12 Calcium 9.2 mg/dL (8.4-10.2) 08/16/18 12:36 Phosphorus 4.1 mg/dl (2.5-4.5) 08/16/18 12:36 Magnesium 1.8 MG/DL (1.6-2.3) 08/16/18 12:36 Total Bilirubin 0.4 mg/dl (0.2-1.3) 08/16/18 12:36 AST 31 U/L (17-59) 08/16/18 12:36 ALT 39 U/L (21-72) 08/16/18 12:36 Alkaline Phosphatase 72 U/L (38-126) 08/16/18 12:36 Troponin I 0.0160 ng/mL (0.00-0.120) 08/15/18 06:45 Total Protein 7.1 G/DL (6.3-8.2) 08/16/18 12:36 Albumin 4.0 g/dL (3.5-5.0) 08/16/18 12:36 Globulin 3.1 gm/dL (2.2-3.9) 08/16/18 12:36 Albumin/Globulin Ratio 1.3 (1.0-2.1) 08/16/18 12:36 - Hospital Course Hospital Course: 52 years old male with history of hypertension and diabetes presents to ER for evaluation of left arm pain and chest pain onset 3 days ago he c/o same weakness of the lt hand. Patient had a surgery about a week ago for thoracic outlet syndrome, cubital tunnel syndrome, carpal tunnel syndrome on left with Dr. Serrano in [facility]. Patient was recovering but reports he developed chest pain and left shoulder pain 3 days ago. Patient states pain radiating down to entire arm and reports pain in neck where he had incision. He denies injuries. He well responded to medical rx no sign of infectious proses will dc home. No CP no syncope no V/N no abdominal pain no focal deficit. Discharge Exam - Head Exam Head Exam: ATRAUMATIC, NORMAL INSPECTION, NORMOCEPHALIC - Eye Exam Eye Exam: Normal appearance - Neck Exam Additional comments: less tenderness and edema - Respiratory Exam Respiratory Exam: Clear to PA & Lateral - Cardiovascular Exam Cardiovascular Exam: REGULAR RHYTHM, +S1, +S2 - GI/Abdominal Exam GI & Abdominal Exam: Normal Bowel Sounds - Extremities Exam Extremities exam: normal inspection - Neurological Exam Neurological exam: Alert, Normal Gait, Oriented x3, Reflexes Normal - Skin Skin Exam: Normal Color Discharge Plan - Follow Up Plan Condition: FAIR Disposition: HOME/ ROUTINE Instructions: Chest Pain (DC) Additional Instructions: Please call Dr. Serrano's office to schedule a follow up appointment after discharge from hospital follow up with in 1 week Referrals: Kelton Ayers MD [Staff Provider] - Augusta Serrano MD [Staff Provider] -
[2018-08-18] MEDS ORDERED: Ergocalciferol 50,000 Intl Units Cap PO SCH (14:43)
--- NOTE | 2018-08-19 02:55 | CON ---
DATE: 08/18/2018 Neurology consult called by Dr. Nelson Pino. HISTORY OF PRESENT ILLNESS: Mr. Austin Acevedo is a 52-year-old male with history of hypertension, diabetes, who came to the emergency room with left arm pain and chest pain three days prior to presentation. He actually had had a rotator cuff surgery with in [facility] several weeks ago. The left shoulder pain started three days before admission. The pain is 9/10, radiating from his arm to his neck. He also complaints of numbness and tingling in his first three fingers of his left arm. When I examined this patient two days ago, the patient had numbness and tingling to his hand and first two fingers. He did not have any weakness. He denied headache, dysphagia, dysarthria, nausea, vomiting. REVIEW OF SYSTEMS: As above. PAST MEDICAL HISTORY: Anxiety, colonic polyps, diabetes, gastritis, hypertension, hypercholesterolemia, sleep apnea. PAST SURGICAL HISTORY: Appendectomy. FAMILY HISTORY: No tobacco, no alcohol. ALLERGIES: NO KNOWN DRUG ALLERGIES. MEDICATIONS: At home, the patient is on aspirin, Lipitor, gabapentin, Amaryl, lisinopril, metformin, omeprazole, and tramadol. PHYSICAL EXAMINATION: NEUROLOGIC: The patient is alert, oriented x3. Cranial nerves II-XII normal. EOMI. Visual fernandes full. Motor tone was normal. Strength was 4-/5 in the left propagation manager. There was 5/5 in all other muscle groups, left interossei 3/5. There was decreased sensation and pain in the left C5-C6 distribution. Gait was normal. There was no clonus. There was no drift. IMPRESSION: This is a 52-year-old male with most likely either cervical radiculopathy or some peripheral nerve involvement secondary to rotator cuff surgery. PLAN: Recommend MRI of the C-spine, MRI of the on outpatient basis, EMG as well. Thank you for this interesting consult. Raad Reece MD
--- NOTE | 2018-08-19 18:11 | CP.PCM.PCO ---
Physician Communication Note - Physician Communication Note Physician Communication Note: Patient with poor pain tolerance Assessment & Plan - Assessment and Plan (Free Text) Assessment: Patient well known to me who has been suffering with compression of the brachial plexus to both sides, but left worse than right who underwent release of the TOS, pec minor, cubital tunnel and carpal tunnel at the same time. He was doing well although at first visit wanted more pain medication. He was switched from Percocet to Ultram and NSAIDs to avoid nacotics. Plan: At almost 2 weeks post-op he should not be needing as much narctoic pain medication but will defer to pain management. I susi not recommend an EMG since his nerves are swollen post release and already irritated. And EMG would worsen his neuropathic pain. He needs therapy for tendon and nerve gliding exercises and to ensure he does them consistently. Follow up with me in the office after discharge. Cardiac and pulmonary work up is negative. - Functional Status Prior to Admission: Ambulatory Current Status: Ambulatory Impairment Code: None - Date & Time Date: 08/17/18 Time: 09:50
--- NOTE | 2018-08-21 08:58 | PQF ---
PROVIDER RESPONSE TEXT: Post surgical pain REVIEWER QUERY TEXT: Symptom Underlying Cause Please document the underlying diagnosis causing the patient?s documented symptom(s) of chest and romaine ulder pain or whether those are insignificant or unable to be further specified. The patient's Clinical Indicators include: xx Query created by: Jadyn Anders on 08/20/2018 3:15 PM Electronically signed by: Kelton Ayers MD 08/21/2018 8:55 AM
--- NOTE | 2018-08-21 15:44 | CP.PCM.PCO ---
Physician Communication Note - Physician Communication Note Physician Communication Note: Patient called my office complaining of pain, sent home without meds Assessment & Plan - Assessment and Plan (Free Text) Assessment: Patient says he was sent home with no meds after being on a Fnetanyl patch and extreme doses of gabapentin. He has no follow up with pain mangememnt and was told to call his primary and me. If patient needs that high a dose of narcotics 2 weeks status post surgery, he needs pain management and should have had a follow up appointment after discharge from the hospital. I will order Percocet for 1 week until he can see pain management and was given the name of a few people. He may also check with his insurance for someone in his plan. - Functional Status Prior to Admission: none Current Status: none Impairment Code: none
== END 2018-08-18 15:50 | disposition home or self-care (01) | DRG 948 ==
LOC: H.ER 06:04 → OBSVTOIN 11:15 → H.ERHOLD 11:15 → H.TEL 21:15
PROVIDERS: ADMIT Internal Medicine; ATTEND Internal Medicine
DX: G89.18 Other acute postprocedural pain (principal); I10 Essential (primary) hypertension; E11.42 Type 2 diabetes mellitus with diabetic polyneuropathy; E78.00 Pure hypercholesterolemia, unspecified; G47.30 Sleep apnea, unspecified; F17.200 Nicotine dependence, unspecified, uncomplicated; Z79.84 Long term (current) use of oral hypoglycemic drugs; K29.70 Gastritis, unspecified, without bleeding; F41.9 Anxiety disorder, unspecified; E66.9 Obesity, unspecified; Z68.34 Body mass index [BMI] 34.0-34.9, adult

== ENCOUNTER 2018-08-19 01:29 | Emergency (ER) | payer MEDICARE ==
[2018-08-19 01:58] VITALS: BMI 34.8
[2018-08-19 02:04] VITALS: RESP 18
--- NOTE | 2018-08-19 02:58 | ED PDOC ---
Upper Extremity Pain/Injury Time Seen by Provider: 08/19/18 02:18 Chief Complaint (Nursing): Upper Extremity Problem/Injury Chief Complaint (Provider): Left arm pain History Per: Patient History/Exam Limitations: no limitations Onset/Duration Of Symptoms: Days Current Symptoms Are (Timing): Still Present Quality: "Pain" Additional History Per: Patient Additional Complaint(s): 52yo male with history of high cholesterol, diabetes, comes to ER for evaluation of left sided body pain at site of recent surgical procedure. One week ago, patient had surgery at [facility] by Dr. Serrano for cubital tunnel, carpal tunnel and thoracic outlet on his left arm. He reports taking pain medications and antibiotics as prescribed after the surgery; he reports no relief with the pain medications (tramadol naproxen, and gabapentin) . Patient was seen in this ER 3 days prior and was admitted under Dr. Ayers's service due to left arm pain, left arm weakness and left sided body pain and was discharged yesterday however returns today due to pain to his left arm. He denies any trauma, weakness, numbness, fever or other complaints, chest pain or shortness of breath. . Past Medical History Reviewed: Historical Data, Nursing Documentation, Vital Signs Vital Signs: Last Vital Signs Temp 97.6 F 08/19/18 01:59 Pulse 99 H 08/19/18 01:59 Resp 18 08/19/18 01:59 BP 175/106 H 08/19/18 01:59 Pulse Ox 97 08/19/18 01:59 Primary Care Provider: Kelton Ayers - Medical History PMH: Anxiety, Colonic Polyps, Diabetes, Gastritis, HTN, Hypercholesterolemia, Sleep Apnea (no c pap) Denies: Chronic Kidney Disease - Surgical History Surgical History: Appendectomy (RUPTURED. HOSPITALIZED FOR 1 MONTH), Endoscopy Other surgeries: left arm surgery - Family History Family History: States: Unknown Family Hx - Social History Current smoker - smoking cessation education provided: No Alcohol: None Drugs: Denies - Immunization History Hx Tetanus Toxoid Vaccination: No Hx Influenza Vaccination: Yes (up to date) Hx Pneumococcal Vaccination: Yes (up to date) - Home Medications Home Medications: Ambulatory Orders Medication Instructions Recorded Atorvastatin [Lipitor] 20 mg PO DAILY 06/25/17 Brimonidine Tartrate [Alphagan P 1 drop OU BID 06/25/17 0.1 % Ophth] Gabapentin 600 mg PO Q8 06/25/17 Glimepiride [amaRYL] 4 mg PO DAILY 06/25/17 MetFORMIN [glucOPHAGE] 1,000 mg PO BID 06/25/17 Omeprazole 40 mg PO DAILY 06/25/17 Aspirin [Ecotrin] 81 mg PO DAILY 08/15/18 Ergocalciferol (Vitamin D2) 50,000 unit PO MO 08/15/18 [Vitamin D2] Insulin Glargine,Hum.rec.anlog 64 unit SC HS 08/15/18 [Basaglar Kwikpen U-100] Naproxen [Naprosyn] 500 mg PO Q12 PRN 08/15/18 Telmisartan 20 mg PO DAILY 08/15/18 traMADol [Ultram] 50 mg PO Q12 PRN 08/15/18 Doxepin [Sinequan] 25 mg PO HS cap 08/18/18 Gabapentin [Neurontin] 800 mg PO TID cap 08/18/18 MetFORMIN [glucoPHAGE] 1,000 mg PO BID tab 08/18/18 Cephalexin [Keflex] 500 mg PO QID #28 capsule 08/19/18 - Allergies Allergies/Adverse Reactions: Allergies Allergy/AdvReac Type Severity Reaction Status Date / Time No Known Allergies Allergy Verified 08/19/18 01:58 Review of Systems ROS Statement: Except As Marked, All Systems Reviewed And Found Negative Constitutional: Negative for: Fever, Chills Cardiovascular: Negative for: Chest Pain, Palpitations Gastrointestinal: Positive for: Diarrhea (minimal) Musculoskeletal: Positive for: Arm Pain (left, at site of the surgical procedure) Neurological: Negative for: Weakness, Numbness Physical Exam - Reviewed Nursing Documentation Reviewed: Yes Vital Signs Reviewed: Yes - Physical Exam Appears: Positive for: Non-toxic, No Acute Distress (pt sleeping in bed in NAD when i went to see him) Head Exam: Positive for: ATRAUMATIC, NORMAL INSPECTION, NORMOCEPHALIC Skin: Positive for: Normal Color Eye Exam: Positive for: Normal appearance, EOMI, PERRL Neck: Positive for: Supple Cardiovascular/Chest: Positive for: Regular Rate, Rhythm, Tachycardia (regular rate), Other (well healing scar lateral to left nipple just below left axilla with swelling and induration. There is very mild erythema to surrounding scar and it is warm to touch. no dehiscence. no wound discharge. ) Respiratory: Positive for: Normal Breath Sounds. Negative for: Respiratory Distress Gastrointestinal/Abdominal: Positive for: Soft. Negative for: Tenderness Extremity: Positive for: Normal ROM Neurological/Psych: Positive for: Awake, Alert, Normal Tone - Laboratory Results Result Diagrams: 08/19/18 05:14 08/19/18 05:14 - ECG O2 Sat by Pulse Oximetry: 97 (RA) Pulse Ox Interpretation: Normal Medical Decision Making Medical Decision Making: Impression: left sided body pain at the site of surgery Recent surgical history, r/o cellulitis Plan: -- Labs -- Toradol 15mg IV 0543 Labs reviewed, patient with normal white count. Mildly elevated blood sugar, patient with hx of diabetes - pt aware of results., vitals are stable throughlout ER stay with no fever. On reassessment, patient sleeping in room and is in no acute distress. 0622 On reassessment, patient reports feeling improved Patient slept the entire stay in ER and is currently in no acute distress Patient is stable for discharge home, informed to follow up with PMD as well as Dr. Serrano Return precautions given. Patient prescribed keflex, instructed to take as p rescribed and to complete entire antibiotics course. Scribe Attestation: Documented by Charity Drake acting as a scribe for Mei De La Garza MD. Provider Scribe Attestation: All medical record entries made by the Scribe were at my direction and personally dictated by me. I have reviewed the chart and agree that the record accurately reflects my personal performance of the history, physical exam, medical decision making, and the department course for this patient. I have also personally directed, reviewed, and agree with the discharge instructions and disposition. Disposition - Clinical Impression Clinical Impression: Pain at surgical site - Patient ED Disposition Is Patient to be Admitted: No Counseled Patient/Family Regarding: Studies Performed, Diagnosis, Need For Followup - Disposition Disposition: Routine/Home Disposition Time: 05:15 Condition: IMPROVED Additional Instructions: follow up with your primary doctor Dr Ayers in 1-2 days fpr reevaluation return to the ED with any worsening or concerning symptoms Prescriptions: Cephalexin [Keflex] 500 mg PO QID #28 capsule Instructions: Postoperative Pain (DC) Forms: [facility] ([place])
[2018-08-19 05:29] LABS: BASO % 0.8 % (0.0-2.0); EOS # 0.3 K/uL (0.0-0.7); EOS % 5.5 % (0.0-4.0); HEMOGLOBIN 13.4 g/dL (12.0-18.0); LYMPH % 15.5 % (20.0-40.0); MEAN CELL VOLUME 87.5 fl (80.0-94.0); MEAN CORPUSCULAR HEMOGLOBIN 30.1 pg (27.0-31.0); MEAN CORPUSCULAR HGB CONC 34.4 g/dL (33.0-37.0); MEAN PLATELET VOLUME 9.3 fl (7.2-11.7); MONO # 0.5 K/uL (0.0-0.8); MONO % 8.2 % (0.0-10.0); NEUT # 4.3 K/uL (1.8-7.0); NRBC % 0.1 % (0.0-0.0); RBC 4.44 Mil/uL (4.40-5.90); RED CELL DISTRIBUTION WIDTH 13.1 % (11.5-14.5); WHITE BLOOD COUNT 6.2 K/uL (4.8-10.8)
[2018-08-19 05:40] LABS: ALB/GLOB RATIO 1.3 (1.0-2.1); ALBUMIN 3.9 g/dL (3.5-5.0); ALT/SGPT 61 U/L (21-72); AST/SGOT 44 U/L (17-59); BLOOD UREA NITROGEN 27 mg/dl (9-20); CALCIUM 9.5 mg/dL (8.4-10.2); GFR NON-AFRICAN AMERICAN > 60
[2018-08-19 06:04] VITALS: BP 158/89; PULSE 69; TEMP 97.7
[2018-08-19 06:26] VITALS: O2SAT 97
== END 2018-08-19 06:20 | disposition home or self-care (01) ==
LOC: H.ER 01:29
DX: M79.602 Pain in left arm (principal); Z98.890 Other specified postprocedural states; E11.9 Type 2 diabetes mellitus without complications; I12.9 Hypertensive chronic kidney disease with stage 1 through stage 4 chronic kidney disease, or unspecified chronic kidney disease; Z79.4 Long term (current) use of insulin; Z79.82 Long term (current) use of aspirin; E78.00 Pure hypercholesterolemia, unspecified
CPT/HCPCS: 80053; 85025; 96374; 99284; J1885